=== PATIENT | male | born 1990 | race Two or more races ===

== ENCOUNTER 2020-08-07 11:46 | Emergency (ER) | payer OTHER ==
[2020-08-07] MEDS ORDERED: Tetracaine HCl/PF 0.5% 4 ML Bottle ONE (12:23)
[2020-08-07] MEDS ORDERED: Tetracaine HCl/PF 0.5% 4 ML Bottle EYERT ONE (12:24)
--- NOTE | 2020-08-07 12:41 | EDM.PDOC ---
ED HPI GENERAL MEDICAL PROBLEM - General Chief Complaint: Eye Problems Stated Complaint: METAL IN EYE Time Seen by Provider: 08/07/20 12:10 - History of Present Illness INITIAL COMMENTS - FREE TEXT/NARRATIVE: *All components of the history and physical and all discussions with the patient were had with the use of a land surveying manager. 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 He states that he has not been experiencing any pain in his right eye no double vision, no loss of vision no blurry vision and denies any pain with movement of his eye. He states that when he pain and then there was some pus drainage comin g out of the top of his eyelid. He denies any fevers or chills. He states that his tetanus is up-to-date. He denies any other injury. He states that other when cleaning it he does not feel any pain at all whatsoever. REVIEW OF SYSTEMS: Constitutional: Denies fever, chills. Eyes: Positive for pus drainage from right eyelid. Denies eye pain Ears, Nose, Mouth, & Throat: Denies earache Cardiovascular: Denies chest pain Respiratory: Denies shortness of breath Gastrointestinal: Denies Nausea, vomiting, diarrhea, hematochezia. Genitourinary: Denies hematuria Skin:Denies a rash MSK: Denies joint pain Neurological: Denies blurred vision, double vision, loss of vision, numbness, tingling, weakness Psychiatric: Denies depression PAST MEDICAL HISTORY: As per history of present illness and as reviewed below otherwise noncontributory. SURGICAL HISTORY: As per history of present illness and as reviewed below otherwise noncontributory. SOCIAL HISTORY: As per history of present illness and as reviewed below otherwise noncontributory. FAMILY HISTORY: As per history of present illness and as reviewed below otherwise noncontributory. EXAMINATION OF ORGAN SYSTEMS/BODY AREAS: Constitutional: Blood pressure is 125/67, heart rate 71, respiratory rate 15 with an oxygen saturation of 100% on room air. Temperature 36.4 General: Overall well-appearing man who is in no acute distress Psychiatric: Appropriate mood and affect. Eyes: No scleral icterus or conjunctival erythema pupils were 3 mm and reactive bilaterally. Extraocular movements were intact. No vertical or horizontal nyst agmus. No signs of entrapment. No hyphema or hypopyon. Visual acuity without corrective lenses is 20/200 in both eyes. On fluorescein examination there was no evidence of corneal abrasion. Inverting the upper and lower eyelids does not reveal any foreign body. The right upper eyelid has evidence of a stye with some white/yellow drainage. No periorbital erythema or swelling. ENMT: Moist mucous membranes. No pharyngeal erythema no trismus. Cardiovascular: Regular, rate, and rhythm. No gallops, murmurs, or rubs. Bilateral upper extremity pulses symmetric and intact. No peripheral edema. No JVD. Respiratory: Lungs clear to auscultation bilaterally. No wheezes, rales, or rhonchi. Skin: As noted above Neurological: Alert, GCS 15 MEDICAL DECISION MAKING AND COURSE IN THE ED WITH INTERPRETATION/REVIEW OF DIAGNOSTIC STUDIES: This is a 30-year-old man without any significant past medical history who comes to the emergency department with concern for possible foreign body in eye with evidence of what appears to be a upper eyelid stye with some pus drainage. The patient does have severely diminished visual acuity and the patient states that he does not use corrective lenses but has not been evaluated by parachute officer. At this time there is no evidence of foreign body or rust ring and I do believe that the swelling on the eyelid is secondary to a stye. I did encourage the patient to use warm compresses and use Tylenol Motrin for pain. No antibiotics will be administered at this time. I did encourage the patient to follow-up with ophthalmology. He was amenable discharge at this time and had no further questions. He was given strict return precautions DISPOSITION: The patient was discharged home in stable condition. The patient will follow up with ophthalmology within 1 to 2 days CONDITION: Fair PROCEDURES: None FINAL IMPRESSION(S)/DIAGNOSES: 1. Acute right upper eyelid hordeolum Miguelangel Matute M.D. R eye Pain Score (Numeric/FACES): 5 - Related Data Allergies Allergy/AdvReac Type Severity Reaction Status Date / Time No Known Allergies Allergy Verified 08/07/20 12:12 Home Meds: Home Meds . [No Known Home Meds] 08/07/20 [History] Past Medical History - Past Health History Medical/Surgical History: Denies Medical/Surgical History Social & Family History - Family History Family Medical History: No Pertinent Family History - Tobacco Use Tobacco Use Status *Q: Never Tobacco User Second Hand Smoke Exposure: No - Caffeine Use Caffeine Use: Reports: Energy Drinks - Recreational Drug Use Recreational Drug Use: No ED ROS GENERAL - Review of Systems Review Of Systems: See Below ED EXAM GENERAL W FULL EYE - Physical Exam Exam: See Below Course - Vital Signs Last Recorded V/S: Last Vital Signs Temp 36.4 C 08/07/20 12:02 Pulse 71 08/07/20 12:02 Resp 15 08/07/20 12:02 BP 125/67 08/07/20 12:02 Pulse Ox 100 08/07/20 12:02 - Orders/Labs/Meds Meds: Medications Discontinued Medications Generic Name Dose Route Start Last Admin Trade Name Freq PRN Reason Stop Dose Admin Tetracaine HCl 1 ml 08/07/20 12:24 08/07/20 13:07 Tetracaine Hcl/Pf 0.5% 4 Ml Bottle EYERT 08/07/20 12:25 1 ml ASDIRECTED ONE Administration Tetracaine HCl Confirm 08/07/20 12:23 08/07/20 13:07 Tetracaine Hcl/Pf 0.5% 4 Ml Bottle Administered 08/07/20 12:24 Not Given Dose 4 ml .ROUTE .STK-MED ONE Departure - Departure Time of Disposition: 12:40 Disposition: Home, Self-Care 01 Condition: Fair Clinical Impression: Hordeolum externum (stye) - Discharge Information *PRESCRIPTION DRUG MONITORING PROGRAM REVIEWED*: No *COPY OF PRESCRIPTION DRUG MONITORING REPORT IN PATIENT ADY: No Instructions: Stye Referrals: PCP,None [Primary Care Provider] - Nixon River MD [Ordering Only Provider] - Forms: ED Department Discharge Additional Instructions: Indira hayden sobre mahesh base emergente. En rell momento no haba evidencia de ningn metal en ordaz ruslan. Creo que esto es un orzuelo. Shlomo se mencion, me gustara que usara compresas tibias de 10 a 15 minutos 3-5 veces al da. Tambin me gustara que realizara un seguimiento con un oftalmlogo, ya que ordaz visin de hoy indica que es posible que necesite algunos anteojos. Si tiene algn empeoramiento de kaylah sntomas, shlomo empeoramiento del dolor ocular, fiebre, enrojecimiento que se extiende alrededor del ruslan en el prpado, visin doble, visin borrosa o prdida de la visin, regrese al departamento de emergencias. Comunquese con oftalmologa hoy mismo para un seguimiento continuo. Se informa al paciente de los resultados de ordaz evaluacin y diagnstico y se responden todas las preguntas. Se les mary instrucciones de carolina y precauciones de devolucin. El paciente est estable para el carolina. El paciente afirma que entiende y est de acuerdo con el plan y que volver si kaylah sntomas empeoran o si tiene alguna inquietud nueva. La siguiente informacin se magdalena a los pacientes atendidos en el departamento de emergencias que estn siendo dados de carolina a ordaz hogar. Esta informacin es pa ra describir kaylah opciones para la atencin de seguimiento. Proporcionamos a todos los pacientes atendidos en nuestro departamento de emergencias mahesh derivacin de seguimiento. La necesidad de seguimiento, as shlomo el momento y las circunstancias, varan segn los detalles de ordaz visita al departamento de emergencias. Si no tiene un mdico de atencin primaria en el personal, le proporcionaremos u na referencia. Siempre le recomendamos que se ponga en contacto con ordaz mdico personal despus de mahesh visita al servicio de urgencias para informarle de las circunstancias de la visita y para realizar un seguimiento con l y / o la necesidad de cualquier derivacin a un especialista consultor. El departamento de emergencias tambin lo derivar a un especialista cuando sea apropiado. Esta remisin le asegura que tiene la oportunidad de recibir atencin de seguimiento con un especialista. Todas estas medidas se raj en un esfuerzo por brindarle mahesh atencin ptima, que incluye ordaz seguimiento. En todas las circunstancias, siempre lo alentamos a que se comunique con ordaz mdico privado, quien sigue siendo un recurso para coordinar ordaz atencin. Cuando llame para recibir atencin de seguimiento, informe al consultorio que rell seguimiento es de ordaz visita reciente a la ryan de emergencias. Si por alguna razn se le niega el seguimiento, comunquese con el [facility]amento [facility] del [facility] al y solicite hablar con la enfermera a cargo del departamento de emergencias. Sepsis Event Note (ED) - Evaluation Sepsis Screening Result: No Definite Risk
== END 2020-08-07 13:00 | disposition home or self-care (01) ==
LOC: MW.ED 11:46
DX: H00.011 Hordeolum externum right upper eyelid (principal)
CPT/HCPCS: 99283